=== PATIENT | male | born 1955 | race Caucasian/White ===

== ENCOUNTER → 2019-01-29 | Outpatient (CLI) | payer BC ==
--- NOTE | 2019-01-29 09:03 | US ---
EXAMINATION TYPE: US liver DATE OF EXAM: 01/29/2019 COMPARISON: CT 2013 CLINICAL HISTORY: B19.20 VIRAL HEP C. Large body habitus EXAM MEASUREMENTS: Liver Length: 14.6 cm Gallbladder Wall: 0.1 cm CBD: 0.4 cm Right Kidney: 11.2 x 4.5 x 6.0 cm Pancreas: portions seen wnl , overlying bowel gas Liver: Diffusely heterogenous echotexture, small hypoechoic elongated area measuring 3.4 x 2.6 x 0.8 cm near the gallbladder fossa in the left hepatic lobe. Gallbladder: wnl Evidence for sonographic Hernandez's sign: No CBD: wnl Right Kidney: wnl IMPRESSION: Diffusely heterogenous echotexture throughout in keeping with this patient's history of h epatocellular disease. This does limit evaluation for masses. Geographic area of hypoattenuation near the gallbladder fossa most commonly represents focal fat sparing.
== END | disposition home or self-care (01) ==
LOC: RADUSWWP 07:19
PROVIDERS: ATTEND Family Medicine
DX: B19.20 Unspecified viral hepatitis C without hepatic coma (principal); R16.0 Hepatomegaly, not elsewhere classified
CPT/HCPCS: 76705

== ENCOUNTER → 2019-02-20 | Outpatient (CLI) | payer BC ==
[2019-02-20 17:03] LABS: INR 0.9 (<1.2); Prothrombin Time 10.2 sec (9.0-12.0)
[2019-02-21 14:57] LABS: HCV Qualitative Result Not detected (Not detected); HCV Quant Log <1.08 (<1.08); HCV Quantitative Result <12 IU/mL (<12)
== END | disposition home or self-care (01) ==
LOC: LABWHC1 15:36
PROVIDERS: ATTEND Physician Assistant
DX: R74.8 Abnormal levels of other serum enzymes (principal)
CPT/HCPCS: 36415; 85610; 87522

== ENCOUNTER → 2020-12-23 | Outpatient (CLI) | payer BC ==
--- NOTE | 2020-12-23 07:40 | MR ---
"MRI CERVICAL SPINE: CLINICAL HISTORY: Radiculopathy per order. Numbness and weakness into both arms and fingers for 4 mon ths per patient. TECHNIQUE: Multiplanar, multisequence imaging of the cervical spine is performed without IV contrast. COMPARISON: None. FINDINGS: Sagittal images of the cervical spine show the craniocervical junction to appear within nor mal limits. There is some mild AP diameter narrowing and subtle increased signal mid cervical spine s agittal image 5. Vertebral alignment is straightened. The vertebral body heights are normal. Moder ate disc space narrowing and anterior spurring C5-C6 and C6-C7 levels with some heterogeneous Modic t ype II endplate changes. Mild disc space narrowing C7-T1 level. Axial images show C2-C3 level to appear within normal limits. Axial images at C3-C4 levels with broad-based posterior disc protrusion with uncovertebral facet dege nerative changes bilaterally, there is effacement of the anterior thecal sac, there is moderate to ad vanced left and mild to moderate right-sided neural foraminal narrowing. Axial images at C4-C5 level show uncovertebral facet degenerative changes bilaterally with more promi nent broad-based central disc protrusion, this is effaces anterior thecal sac up to ventral surface o f spinal cord which is slightly flattened, subtle increased T2 signal is seen best appreciated on sag ittal images, there is moderate to advanced left greater than right bilateral neural foraminal narrow ing. Axial images at C5-C6 level broad-based right paracentral/foraminal disc protrusion, there is some fl attening of the ventral surface of spinal cord, there is marginal spurring causing [id number] l eft with more moderate to advanced right-sided neural foraminal narrowing. Spinal cord signal maintai carlos on sagittal images. Axial images at C6-C7 level show focal broad-based left paracentral disc protrusion effacing anterior thecal sac up to ventral cervical spinal cord which is slightly flattened, no abnormal signal on sag ittal images. There is additional marginal spurring causing advanced left and moderate to advanced ri ght-sided neural foraminal narrowing. Axial images at C7-T1 level showed broad based posterior disc protrusion effacing the anterior thecal sac with mild left and mild to moderate right-sided neural foraminal narrowing. IMPRESSION: Straightening of cervical spine with multilevel degenerative changes as detailed above. A ttention to C4-C5 level where most prominent spinal canal effacement or stenosis is present. There is mass effect on spinal cord with narrowing and edema felt present. Neurosurgical referral advised. A Yellow level critical message alert has been initiated for Boston Tucker MD via the [id number] | Critical Results System on 12/23/2020 7:38 AM. This message alert has been sent to Boston Tucker MD via the preferences provided by the clinician for the receipt of Radiology Critical Findings. Mess age ID [id number]."
== END | disposition home or self-care (01) ==
LOC: RADMRIMAIN 05:55
PROVIDERS: ATTEND Family Medicine
DX: M50.13 Cervical disc disorder with radiculopathy, cervicothoracic region (principal); M99.71 Connective tissue and disc stenosis of intervertebral foramina of cervical region; M47.22 Other spondylosis with radiculopathy, cervical region
CPT/HCPCS: 72156; A9585

== ENCOUNTER → 2020-12-31 | Outpatient (CLI) | payer BC ==
--- NOTE | 2020-12-31 09:34 | XR ---
Cervical spine HISTORY: Spinal stenosis 6 views of the cervical spine correlated to MRI 12/23/2020 There is multilevel spondylosis. There is a spinal curvature present. Facet arthropathy changes are a lso noted. Multilevel foraminal encroachment is again noted. Cervical vertebral bodies show near aldair omic alignment, minimal anterolisthesis grade 1 C3-4, retrolisthesis grade 1 C2-3, likely degenerativ e. Loss of disc height is greatest at C5-6, C6-7, C7-T1 not well seen. Cervical vertebral bodies show preserved height and bone mineralization. Prevertebral soft tissues are within normal limits. There is overlying artifact. IMPRESSION: Degenerative disc disease, facet arthropathy, multilevel foraminal encroachment.
== END | disposition home or self-care (01) ==
LOC: RADXRMAIN 07:42
PROVIDERS: ATTEND Family Medicine
DX: M50.323 Other cervical disc degeneration at C6-C7 level (principal); M47.812 Spondylosis without myelopathy or radiculopathy, cervical region; M99.71 Connective tissue and disc stenosis of intervertebral foramina of cervical region
CPT/HCPCS: 72050

== ENCOUNTER → 2021-01-20 | Outpatient (CLI) | payer BC ==
--- NOTE | 2021-01-20 15:38 | XR ---
EXAMINATION TYPE: XR chest 2V DATE OF EXAM: 01/20/2021 COMPARISON: NONE TECHNIQUE: PA and lateral views submitted. HISTORY: Presurgical FINDINGS: The lungs are clear and there is no pneumothorax, pleural effusion, or focal pneumonia. Heart size normal. No overt failure. Hypertrophic and degenerative change of the spine. IMPRESSION: 1. No acute process.
== END | disposition home or self-care (01) ==
LOC: RADXRMAIN 14:38
PROVIDERS: ATTEND Nurse Practitioner
DX: Z01.818 Encounter for other preprocedural examination (principal)
CPT/HCPCS: 71046